=== PATIENT | male | born 1985 | race Caucasian/White ===

== ENCOUNTER 2019-11-28 00:33 | Emergency (ER) | payer BC ==
[~2019-11-28] VITALS: Ht 182.9 cm; Wt 120.2 kg
[~2019-11-28 00:33] MED LIST: ASPI81EC PO; HYDACE5 PO; HYDR1TAB94; IBUP600 PO; OXYACE5T PO; Percocet 5-3251 EACH PO; TAMS.4ER PO
[2019-11-28 02:01] LABS: BASOPHILS ABSOLUTE AUTO 0.04 K/mm3 (0.00-0.23); BASOPHILS PERCENT AUTO 0 % (0-2); EOSINOPHILS ABSOLUTE AUTO 0.13 K/mm3 (0.00-0.68); EOSINOPHILS PERCENT AUTO 1 % (0-6); Hematocrit 42.7 % (37.0-53.0); Hemoglobin 12.8 g/dL (13.5-17.5); IMMATURE GRAN ABSOLUTE AUTO 0.06 K/mm3 (0.00-0.10); IMMATURE GRAN PERCENT AUTO 1 % (0-1); LYMPHOCYTES ABSOLUTE AUTO 1.77 K/mm3 (0.84-5.20); LYMPHOCYTES PERCENT AUTO 16 % (21-46); MONOCYTES ABSOLUTE AUTO 1.16 K/mm3 (0.16-1.47); MONOCYTES PERCENT AUTO 11 % (4-13); Mean Corpuscular HGB 25.7 pg (26.0-34.0); Mean Corpuscular Volume 86 fL (80-100); Mean Platelet Volume 9.3 fL (9.1-12.4); NEUTROPHILS ABSOLUTE AUTO 7.79 K/mm3 (1.96-9.15); NEUTROPHILS PERCENT AUTO 71 % (41-73); Platelet Count 300 K/mm3 (150-400); RDW Coefficient Variation 15.7 % (11.7-14.2); RDW Standard Deviation 49.1 fL (35.1-46.3); Red Blood Cell Count 4.98 M/mm3 (4.30-5.90); White Blood Cell Count 10.95 K/mm3 (4.00-11.30)
[2019-11-28 02:18] LABS: Alanine Aminotransfer (ALT/SGP 26 U/L (12-78); Albumin, Blood 4.2 g/dL (3.4-5.0); Albumin/Globulin Ratio 1.1 (0.8-1.8); Alk Phos 67 U/L (50-136); Anion Gap 5 mmol/L (6-16); Aspartate Aminotrans (AST/SGOT 16 U/L (12-37); Bilirubin, Total 0.3 mg/dL (0.1-1.0); Blood Urea Nitrogen 16 mg/dL (8-24); Bun/Creatinine Ratio 14.2 (12.0-20.0); CO2, Blood 28 mmol/L (21-32); Calcium, Blood 8.5 mg/dL (8.5-10.1); Chloride, Blood 108 mmol/L (98-108); Creatinine, Blood 1.13 mg/dL (0.60-1.20); Globulin, Blood 3.8 g/dL (2.2-4.0); Glomerular Filtration Rate >60 (60-); Glucose, Blood 107 mg/dL (70-99); Potassium, Blood 3.9 mmol/L (3.5-5.5); Sodium, Blood 141 mmol/L (136-145)
[2019-11-28 04:05] LABS: Source, Urine Clean Catch
[2019-11-28 04:07] LABS: Appearance, Urine Cloudy (Clear); Bilirubin, Urine Neg (Neg); Blood, Urine 5+ (Neg); Color, Urine Amber (P-Yellow); Glucose Qualitative, Urine Neg (Neg); Ketones, Urine 1+ (Neg); Leukocyte Esterase, Urine 1+ (Neg); Nitrite, Urine Neg (Neg); Protein, Urine 2+ (Neg); Specific Gravity, Urine 1.025 (1.003-1.022); Urobilinogen, Urine 1+ (Normal)
[2019-11-28 04:12] LABS: Red Blood Cells, Urine TNTC /hpf (0-2)
[2019-11-28 04:13] LABS: Bacteria Many /hpf; Mucus Light (0-Heavy); Squamous Epithelial Cells Not Seen /hpf (Few); Yeast/Fungi Urine Few /hpf
[2019-11-28] MEDS ORDERED: ONDA4ODT MM (04:26)
[2019-11-28] MEDS ORDERED: Norco 5-325 Ta1 EACH PO (04:26)
[2019-11-28] MEDS ORDERED: FLOMAX0.4 MG PO (04:26)
== END 2019-11-28 06:33 | disposition home or self-care (01) ==
LOC: ER 00:33
PROVIDERS: Emergency Medicine
DX: N13.2 Hydronephrosis with renal and ureteral calculous obstruction (principal)
CPT/HCPCS: 74176; 80053; 81001; 85025; 87086; 96361; 96374; 96375; 99284-25; A9270; A9270-GY; J1170; J1885; J2405; J7030

== ENCOUNTER → 2024-05-10 | Outpatient (CLI) | payer BC ==
[~2024-05-10] MED LIST changes: +FLOMAX0.4 MG PO; +Norco 5-325 Ta1 EACH PO; +ONDA4ODT MM
[2024-05-10 10:38] LABS: Source, Urine Clean Catch
[2024-05-10 12:24] LABS: Appearance, Urine Turbid (Clear); Bilirubin, Urine Neg (Neg); Blood, Urine 5+ (Neg); Color, Urine Yellow (P-Yellow); Glucose Qualitative, Urine Neg (Neg); Ketones, Urine Neg (Neg); Leukocyte Esterase, Urine Neg (Neg); Nitrite, Urine Neg (Neg); Protein, Urine 2+ (Neg); Specific Gravity, Urine 1.025 (1.003-1.022); Urobilinogen, Urine NORM (Normal)
[2024-05-10 12:39] LABS: Amorphous Heavy (0-Heavy); White Blood Cells, Urine 0-2 /hpf (0-5)
[2024-05-10 12:40] LABS: Bacteria Few /hpf; Calcium Oxalate Crystals Few /hpf; Squamous Epithelial Cells Not Seen /hpf (Few)
== END | disposition home or self-care (01) ==
LOC: LAB SHORT 07:30 → LAB 07:30
PROVIDERS: Nurse Practitioner Family
DX: N20.0 Calculus of kidney (principal); R31.0 Gross hematuria; Z87.442 Personal history of urinary calculi
CPT/HCPCS: 81001; 87086

== ENCOUNTER 2024-06-06 05:41 | Day surgery (SDC) | payer BC ==
[2024-06-06] VITALS (9 sets, daily range): BP systolic 107–132; BP diastolic 69–87
[2024-06-06] MEDS ORDERED: BUPROPION HCL200 M2 PO (06:23)
[2024-06-06] MEDS ORDERED: LISI20 PO (06:23)
[2024-06-06] MEDS ORDERED: NS 1,000 ML IV ONE (06:38)
[2024-06-06] MEDS ORDERED: Benzocaine Oral Spray 0.5ML UD ONE (06:39)
--- NOTE | 2024-06-06 07:32 | NUR ---
PT VERBALIZED UNDERSTANDING OF WRITTEN AND VERBAL D/C INST. IV REMOVED. PT WILL BE TAKEN OUT OF THE [facility] VIA W/C.
--- NOTE | 2024-06-06 07:32 | NUR ---
ASSUMED CARE FROM ANESTHESIA. PT AWAKE AND VERBALIZING WELL.
[2024-06-06] MEDS ORDERED: DiphenhydrAMINE HCl 50 MG/ML 1ML Vial ONE (07:47)
[2024-06-06] MEDS ORDERED: Famotidine 10 MG/ML 2ML Vial ONE (07:47)
--- NOTE | 2024-06-06 07:58 | NUR ---
PT C/O HIVES ON ARMS AND ABD. DR ZAVALA NOTIFIED. PEPCID 20MG IVP AND BENADRYL 25MG IVP GIVEN.
--- NOTE | 2024-06-06 08:08 | NUR ---
HIVES RESOLVED. PT AND VERBALIZED UNDERSTANDING OF WRITTEN AND VERBAL D/C INST.
[2024-06-06] MEDS ORDERED: Propofol 10mg/ml 20 ml Vial (Procedural) IV ONE (08:59)
[2024-06-06] MEDS ORDERED: Lidocaine HCl 2% 20 MG/ML 5ML SYR IV ONE (09:11)
== END 2024-06-07 23:00 | disposition home or self-care (01) ==
LOC: MHTC 05:41
DX: I35.8 Other nonrheumatic aortic valve disorders (principal); Z82.79 Family history of other congenital malformations, deformations and chromosomal abnormalities
CPT/HCPCS: 93312; 93325; A9270; J1200; J2003; J2704; J7030